=== PATIENT | female | born 1965 | race Caucasian/White ===

== ENCOUNTER 2019-03-08 15:30 | Emergency (ER) | payer OTHER ==
[~2019-03-08] VITALS: Ht 167.6 cm; Wt 81.6 kg
[2019-03-08] MEDS ORDERED: COZAAR100 MG PO (16:18)
[2019-03-08] MEDS ORDERED: NIFEDIPINE ER30 M1 PO (16:18)
[2019-03-08] MEDS ORDERED: DICY20TA PO (16:19)
[2019-03-08] MEDS ORDERED: ABATINEX680 MG PO (16:19)
[2019-03-08] MEDS ORDERED: RANITIDINE HCL300 M1 PO (16:20)
== END 2019-03-08 21:01 | disposition home or self-care (01) ==
LOC: ER 15:30
DX: K52.89 Other specified noninfective gastroenteritis and colitis (principal)